=== PATIENT | female | born 1970 | race Caucasian/White ===

== ENCOUNTER → 2024-12-18 08:23 | Outpatient (REF) | payer OTHER, SELFPAY | LOC: WDC 08:23 | PROVIDERS: ATTENDING PHYSICIAN Obstetrics & Gynecology | DX: Z12.31 Encounter for screening mammogram for malignant neoplasm of breast (principal) | CPT/HCPCS: 77063; 77067 ==

== ENCOUNTER → 2025-06-07 10:39 | Outpatient (REF) | payer OTHER, SELFPAY | LOC: RAD 10:39 | PROVIDERS: ATTENDING PHYSICIAN Nurse Practitioner Family | DX: Z13.820 Encounter for screening for osteoporosis (principal) | CPT/HCPCS: 77080 ==

== ENCOUNTER → 2025-07-14 09:59 | Outpatient (REF) | payer OTHER, SELFPAY | LOC: MRI 3T 09:59 | PROVIDERS: ATTENDING PHYSICIAN Nurse Practitioner Family; FAMILY PHYSICIAN Family Medicine | DX: H90.42 Sensorineural hearing loss, unilateral, left ear, with unrestricted hearing on the contralateral side (principal); D33.2 Benign neoplasm of brain, unspecified; R31.29 Other microscopic hematuria | CPT/HCPCS: 70553; 76770; A9575 ==

== ENCOUNTER → 2025-07-14 14:54 | Outpatient (REF) | payer OTHER, SELFPAY | LOC: RAD 14:54 | PROVIDERS: ATTENDING PHYSICIAN Nurse Practitioner Family; FAMILY PHYSICIAN Family Medicine | DX: R31.29 Other microscopic hematuria (principal) | CPT/HCPCS: 76770 ==